=== PATIENT | male | born 1950 | race Caucasian/White ===

== ENCOUNTER 2018-04-18 05:59 | Day surgery (SDC) | payer MEDICARE, OTHER ==
[2018-04-18] MEDS ORDERED: DIPRIVAN 200 MG/20 ML IV ONE (06:00)
[2018-04-18] MEDS ORDERED: Lactated Ringers 1,000 ML IV ONE ×2 (06:43→08:12)
[2018-04-18] MEDS ORDERED: Lactated Ringers 1,000 ML IV SCH (07:00)
--- NOTE | 2018-04-18 07:44 | HP ---
DATE OF SURGERY: 04/18/2018 ANTICIPATED PROCEDURE: Colonoscopy. HISTORY OF PRESENT ILLNESS: A 68 year-old with no C-scope to date. Discomfort right lower quadrant, right upper quadrant, back and constipated. PAST MEDICAL HISTORY: ALLERGIES: SULFA. MEDICATIONS: Blood pressure medicine. PAST SURGICAL HISTORY: Hernia as a child. Scalp cyst. SOCIAL HISTORY: Negative. FAMILY HISTORY: Negative. REVIEW OF SYSTEMS: Hypertension. PHYSICAL EXAMINATION: VITAL SIGNS: Normal. CHEST: Clear. COR: Regular. ABDOMEN: No palpable organomegaly or mass. IMPRESSION: No colonoscopy to date with some abdominal pain and constipation. PLAN: Colonoscopy.
[2018-04-18 09:30] VITALS: O2SAT 100
[2018-04-18 09:38] VITALS: BP 149/99; PULSE 64
--- NOTE | 2018-04-18 10:38 | OP ---
SURGERY DATE/TIME: 04/18/2018 0821 PREOPERATIVE DIAGNOSIS: Screening. PROCEDURES: 1) Colonoscopy complete to cecum. 2) Hot polypectomy hepatic flexure x1. SURGEON: Jose Maria Leiva M.D. ZOO CARETAKER: Jose Alfredo Mckee, Medical Student III. ANESTHESIA: MAC. COMPLICATIONS: None. CONDITION: Stable. PREP: Excellent. WITHDRAWAL TIME: 6 minutes. INDICATION: A patient requiring colonoscopy. The patient incidentally has a little bit of right lower quadrant discomfort and has been constipated. DESCRIPTION OF PROCEDURE: Taken to endoscopy. Left lateral decubitus position. Anal digital examination satisfactory. Scope introduced. Scope advanced to the cecum. Base of cecum, ileocecal valve satisfactory. Appendiceal orifice not visible. Ascending, hepatic on the medial edge hepatic a 1.2 cm slightly sessile polyp was lifted up. It was taken with hot biopsy forceps to extinction. [employer] biopsy submitted. The splenic flexure, descending, sigmoid, rectum, anus was normal. Excellent prep was present. The patient tolerated the procedure satisfactorily. There was nothing unusual on today's exam. There was no diverticulosis. There was no excessive spasm. There was a normal mucosa except for the polyp. FOLLOW UP: Three years.
== END 2018-04-18 10:03 | disposition home or self-care (01) ==
LOC: SDC 05:59
PROVIDERS: ATTEND Surgery
DX: Z12.11 Encounter for screening for malignant neoplasm of colon (principal); K63.5 Polyp of colon; R10.31 Right lower quadrant pain; K59.00 Constipation, unspecified; I10 Essential (primary) hypertension
CPT/HCPCS: J2704